=== PATIENT | female | born 1945 | race Two or more races ===

== ENCOUNTER 2021-02-01 06:18 | Day surgery (SDC) | payer OTHER ==
[~2021-02-01 06:18] MED LIST: EXFORGE 5-3201 EACH PO; FLOVENT DISKU100 MCG IH; LIPITOR40 MG PO; PLAVIX75 MG PO; SINGULAIR10 MG PO; TOPROL XL25 M1 PO; XOPENEX HFA15 GM IH
[2021-02-01] MEDS ORDERED: DUI500 PO (09:05)
[2021-02-01] MEDS ORDERED: TRAMADOL HCL50 MG PO (09:05)
== END 2021-02-01 14:55 | disposition home or self-care (01) ==
LOC: CIR.AMB 06:18
PROVIDERS: ATTEND Orthopaedic Surgery Sports Medicine
DX: M23.321 Other meniscus derangements, posterior horn of medial meniscus, right knee (principal); M65.862 Other synovitis and tenosynovitis, left lower leg; Z20.822 Contact with and (suspected) exposure to COVID-19